=== PATIENT | male | born 1970 | race Caucasian/White ===

== ENCOUNTER 2023-05-15 07:30 | Outpatient (REF) | payer BC, SELFPAY ==
--- NOTE | ~2023-05-15 | CT_ITS ---
EXAMINATION: CT CHEST WITHOUT CONTRAST CLINICAL INFORMATION: Pulmonary nodule. COMPARISON: None available. TECHNIQUE: Multidetector volumetric CT imaging of the chest was done. Axial MIP volume rendering provided. Sagittal and coronal reformatted images were obtained. This CT examination was performed using dose optimization techniques as appropriate, variously including the following: *Automated exposure control. *Adjustment of mA and/or kV according to patient size (this includes techniques or standardized protocols for targeted exams where dose is matched to indication/reason for exam; i.e. extremities or head). *Use of iterative reconstruction technique. DLP: 270 mGy-cm FINDINGS: LUNGS: A 2 x 4 mm left upper lobe nodule, axial image 102 series 5. A 2 mm right upper lobe nodule, axial image 116 series 5. Two adjacent irregularly-shaped parenchymal density in the posterior segment right upper lobe measuring 3 x 7 mm, axial image 242 series 5. Adjacent linear scarring or subsegmental atelectasis in the posterior segment right upper lobe and right lung base in the posterior right lower lobe. Increased soft tissue adjacent to the left anterior lower trachea measuring 4 mm. It is uncertain whether this represents patient secretions. MEDIASTINUM: The mediastinum is normal. Small subcentimeter left thyroid nodule. No imaging follow up recommended. CORONARY ARTERY CALCIFICATION: None visualized on this study. PLEURA: There is no pleural effusion. No pleural mass or thickening. AXILLA: No lymphadenopathy. UPPER ABDOMEN: Small 2 cm cyst in the posterior segment of the right lobe of the liver. OSSEOUS STRUCTURES: Unremarkable. CT/CT chest wo IV con IMPRESSION: Irregularly-shaped parenchymal density in the posterior segment of the right upper lobe measuring 3 x 7 mm and adjacent linear scarring or subsegmental atelectasis. A 4 mm soft tissue density adjacent to the anterior side of the trachea. Short-term chest CT followup in 3-6 months recommended. Fleischner guidelines were followed.
== END 2023-05-15 07:31 | disposition home or self-care (01) ==
LOC: HO.CT 07:30
PROVIDERS: PCP Family Medicine; Visit Provider Nurse Practitioner Family
DX: R91.1 Solitary pulmonary nodule (principal)
CPT/HCPCS: 71250